=== PATIENT | male | born 1950 | race Caucasian/White ===

== ENCOUNTER 2024-06-05 10:41 | Outpatient (REF) | payer MEDICARE, OTHER, SELFPAY ==
[2024-06-05 12:40] LABS: Alanine Aminotransferase 38 U/L (0-40); Albumin Level 3.1 g/dL (3.5-5.0); Alkaline Phosphatase 188 U/L (39-117); Anion Gap 16 (12-20); Aspartate Amino Transferase 79 U/L (5-37); Blood Urea Nitrogen 10 mg/dL (9-16); Calcium 7.9 mg/dL (8.4-10.2); Carbon Dioxide 24 mmol/L (22-29); Chloride 101 mmol/L (96-108); Estimated Glomerular Filt Rate > 60; Glucose Random 114 mg/dL (60-115); Potassium 3.2 mmol/L (3.3-5.1); Sodium 138 mmol/L (135-145); Total Protein 7.3 g/dL (6.5-8.0)
[2024-06-05 12:45] LABS: HBsAGNum1 0.26 S/CO (0.00-0.99); Hepatitis B Surface Antigen Negative (Negative); ~HepC Num1 0.11 S/CO (0.00-0.79); ~Hepatitis B Surface Antibody NONREACTIVE (Nonreactive); ~Hepatitis C Antibody Nonreactive (Nonreactive)
[2024-06-05 12:47] LABS: Hepatitis A Antibody IgG REACTIVE (Nonreactive); ~Hepatitis A Antibody IgG 10.39 S/CO (0.00-0.99)
[2024-06-05 12:50] LABS: Bilirubin Total 2.2 mg/dL (0.0-1.0)
== END 2024-06-05 10:42 | disposition home or self-care (01) ==
LOC: HO.HHCL 10:41
PROVIDERS: Visit Provider Internal Medicine Geriatric Medicine
DX: K80.50 Calculus of bile duct without cholangitis or cholecystitis without obstruction (principal); K70.30 Alcoholic cirrhosis of liver without ascites; Z72.89 Other problems related to lifestyle
CPT/HCPCS: 36415; 80053; 86706; 86708; 86803; 87340

== ENCOUNTER 2024-09-15 13:56 | Outpatient (REF) | payer MEDICARE, SELFPAY ==
--- OUTSIDE RECORDS SUMMARY | 2024-09-15 16:03 | XMS_ITS | Encounter Summary ---
Author Organization [employer] Address [address] [facility] [address] [place] [address] Care Team Providers Care Hadoop Administrator Name Role Phone Name, Kaz RODRIGUEZ Primary Care Provider [phone] Encounter Details Date Type Department Care Team (Latest Contact Info) Description 09/15/2024 Travel Social History Tobacco Use Types Packs/Day Years Used Date Smoking Tobacco: Never Smokeless Tobacco: Never Depression Answer Date Recorded Patient Health Questionnaire-9 Score 15 2024 Patient Health Questionnaire-9 Score 15 2024 Last PHQ-9: Questionnaire Data Not on file 0 2024 Housing Stability Answer Date Recorded What is your housing situation today? I have isaías martínez [address] you li ve. Do you have problems with any of the following? None of the above 2024 Food Insecurity Answer Date Recorded Within the past 12 months, y ou worried that your food would run out before you got money to buy more: Never True 2024 Within the past 12 months,th e food you bought just didn't last and you didn't have enough money to get more: Never True 09/2024 Transportation Answer Date Recorded In the past 12 months, has l ack of transportation kept you from medical appts, meetings, work or from getting things needed for daily living? No 2024 Utilities Answer Date Recorded In the past 12 months, has t he electric, gas, oil or water company threatened to shut off services in your home? No 2024 Depression Answer Date Recorded Patient Health Questionnaire-2 Score 6 2024 Internet Access Answer Date Recorded Internet Access Q1 Yes 2024 Internet Access Q2 Not on file 2024 Sex and Gender Information Value Date Recorded Sex Assigned at Male 05/26/2024 10:08 AM EST Legal Sex Male 10:06 AM EST Gender Identity Male 06/04/2024 8:40 AM EST Sexual Orientation Straight 06/04/2024 8: 40 AM EST documented as of this encounter Plan of Treatment Upcoming Encounters Date Type Department Care Team (Late st Contact Info) Description 11/24/2024 10:45 AM EDT Office Visit [facility] [address] [place] [phone] Name, MD Kaz [address] [place] [address] 12/11/2024 1:00 PM EDT Immunization [facility] [address] [place] [address] documented as of this encounter Visit Diagnoses Not on filedocumented in this encounter Additional Health Concerns Assessment Noted Time PHQ-9 Depression Total Score: 15 025 9:36 AM EST documented as of this encounter Care Teams Hadoop Administrator Relationship Specialty Start Date End Date Name, MD Kaz [address] [place] [phone] PCP - General Internal Medicine 06/05/24 documented as of this encounter
[2024-09-15 16:12] LABS: MANUAL DIFF FLAG NO
[2024-09-15 16:26] LABS: Basophils Percent Auto 0.5 % (0-2); Eosinophils Absolute Auto 0.1 X10*3/uL (0.0-0.4); Eosinophils Percent Auto 2.3 % (0-4); Hematocrit 25.1 % (42.0-52.0); Hemoglobin 8.1 g/dl (14.0-18.0); Imm Gran Abs Auto 0.01 X10*3/uL (0.00-0.03); Imm Gran Pct Auto 0.2 % (0.0-0.4); Lymphocytes Absolute Auto 1.5 X10*3/uL (1.2-4.9); Lymphocytes Percent Auto 24.1 % (20-40); Mean Corpuscular HGB Conc 32.3 g/dl (31.0-36.0); Mean Corpuscular Hemoglobin 32.5 pg (27.0-33.0); Mean Corpuscular Volume 100.8 fL (80.0-98.0); Mean Platelet Volume 10.6 fL (9.4-12.4); Monocytes Absolute Auto 0.5 X10*3/uL (0.1-1.2); Monocytes Percent Auto 8.8 % (2-11); Neutrophils Absolute Auto 3.9 x10*3/uL (2.0-8.3); Neutrophils Percent Auto 64.1 % (45-73); Platelet Count 228 X10*3/uL (160-400); Red Blood Count 2.49 X10*6/uL (4.60-5.80); Red Cell Distribution Width 15.2 % (11.0-16.0)
[2024-09-15 17:10] LABS: Ferritin 293 ng/mL (20-250)
[2024-09-15 17:34] LABS: Alanine Aminotransferase 34 U/L (0-40); Albumin Level 3.4 g/dL (3.5-5.0); Alkaline Phosphatase 125 U/L (39-117); Anion Gap 12 (12-20); Aspartate Amino Transferase 48 U/L (5-37); Bilirubin Total 0.6 mg/dL (0.0-1.0); Blood Urea Nitrogen 11 mg/dL (9-16); Calcium 8.6 mg/dL (8.4-10.2); Carbon Dioxide 33 mmol/L (22-29); Chloride 103 mmol/L (96-108); Estimated Glomerular Filt Rate > 60; Glucose Random 106 mg/dL (60-115); Iron 54 mcg/dL (45-160); Percent Iron Saturation 22 % (15-50); Potassium 3.9 mmol/L (3.3-5.1); Sodium 144 mmol/L (135-145); Total Iron Binding Capacity 241 mcg/dL (228-428); Total Protein 6.6 g/dL (6.5-8.0); Unsaturated Iron Binding 187 ug/dL
[2024-09-15 18:17] LABS: Folate > 20.0 ng/mL (> or = 4.0); Vitamin B12 468 pg/mL (200-900)
== END 2024-09-15 13:57 | disposition home or self-care (01) ==
LOC: HO.HHCL 13:56
PROVIDERS: Family Medicine; PCP Internal Medicine Geriatric Medicine; Visit Provider Internal Medicine Geriatric Medicine
DX: D53.9 Nutritional anemia, unspecified (principal); J44.9 Chronic obstructive pulmonary disease, unspecified; I50.22 Chronic systolic (congestive) heart failure; D69.6 Thrombocytopenia, unspecified; F10.90 Alcohol use, unspecified, uncomplicated
CPT/HCPCS: 36415; 80053; 82607; 82728; 82746; 83540; 85025

== ENCOUNTER 2024-11-24 11:32 | Outpatient (REF) | payer MEDICARE, MEDICAID, SELFPAY ==
--- NOTE | ~2024-11-24 | XR_ITS ---
EXAMINATION: XR FOOT, RIGHT CLINICAL INFORMATION: Right foot great toe pain for the past 2 weeks, no history of trauma COMPARISON: None available. TECHNIQUE: AP, lateral, and oblique views of the right foot. FINDINGS: There is minimal narrowing of the first metatarsophalangeal joint. Joint spaces are preserved otherwise. On the oblique view, there is nonspecific focal osteopenia involving the medial first metatarsal head. There is no joint diastases or malalignment. There are small marginal osteophytes involving the dorsal midfoot. Globular calcific density is seen in the soft tissues dorsal to the talar neck. There is streaky ossification of the distal Achilles tendon. There is moderate atherosclerotic calcification posterior to the ankle joint. XR/XR foot RT min 3V IMPRESSION: Mild first MTP joint space narrowing. 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 Probable remote avulsion fracture involving dorsal talar neck. Electronically signed by: Connor Womack MD 11/24/2024 12:22 PM EDT
--- OUTSIDE RECORDS SUMMARY | 2024-11-24 10:45 | XMS_ITS | Encounter Summary ---
Author Organization [employer] Address [address] [facility] 7t [place] [address] Care Team Providers Care Special Procedures Technologist Name Role Phone Name, Kaz RODRIGUEZ Primary Care Provider [phone] Encounter Details Date Type Department Care Team ([facility] st Contact Info) Description 11/24/2024 10:45 AM EDT Office Visit [facility] [address] [place], [place] [phone] Name, MD Kaz [address] [place] [address] Heart failure with mildly reduced ejection fraction (CMS/HCC) (Primary Dx); Atrial fibrillation, unspecified type (CMS/HCC); Great toe pain, right; Macrocytic anemia; Gait difficulty Social History Tobacco Use Types Packs/Day Years Used Date Smoking Tobacco: Never Smokeless Tobacco: Never Tobacco Cessation:Counseling Given: Not Answered Depression Answer Date Recorded Patient Health Questionnaire-9 [...] AM EST documented as of this encounter Last Filed Vital Signs Vital Sign Reading Time Taken Comments Blood Pressure 112/62 11/24/2024 10:51 AM EDT Pulse 71 11/24/2024 10:51 AM EDT Temperature 36.7 C (98 F) 11/24/2024 10:51 AM EDT Respiratory Rate 18 11/24/2024 10:5 1 AM EDT Oxygen Saturation 99% 11/24/2024 10: 51 AM EDT Inhaled Oxygen Concentration - - Weight 73.4 kg (161 lb 12.8 oz) 025 10:51 AM EDT Height 165.1 cm (5' 5 ) 11/24/2024 10:5 1 AM EDT Body Mass Index 26.92 11/24/2024 10:51 AM EDT documented in this encounter Plan of Treatment Upcoming Encounters Date Type Department Care Team (Late st Contact Info) Description 12/11/2024 1:00 PM EDT Immunization [facility] [address] [place] [address] 02/17/2025 2:30 PM EST Office Visit [facility] [address] [place] [phone] Name, [place] [address] documented as of this encounter Procedures Procedure Name Priority Date/Time Associated Diagnosis Comments XR FOOT 3+ VIEWS RIGHT Routine 11/24/2024 11:21 AM EDT Great toe pain, right POCT HEMOGLOBIN Routine 11/24/2024 11:21 AM EDT Macrocytic anemia documented in this encounter Results * POCT Hemoglobin (11/24/2024 11:21 AM EDT) Hemoglobin 13.3 13.0 - 17.0 QC Media Lot # [id number] Lot# Expiration Date Blood 11/24/2024 11:2 1 AM EDT Kaz Manning MD POINT OF CARE TEST ENTER/EDIT OR DERABLES Final Result * XR Foot 3+ Views Right (11/24/2024 11:21 AM EDT) Anatomical Region Laterality Modality Lower Extremities, Foot Right Radiogra phic Imaging 11/24/2024 11:2 1 AM EDT Narrative 11/24/2024 12:25 [place] [address] XRay Report Signed Patient: Adolph Wisdom MR#: [id number] : 1950 Acct:[id number] Age/Sex: 74 / M ADM Date: 11/24/24 Loc: .HHCX Attending Dr: Kaz Manning MD Ordering Physician: Kaz Manning MD Date of Service: 11/24/24 Procedure(s): XR foot RT min 3V Accession Number(s): [id number] cc: Kaz Manning MD EXAMINATION: XR FOOT, RIGHT CLINICAL INFORMATION: Right foot great toe pain for the past 2 weeks, no history of trauma COMPARISON: None available. TECHNIQUE: AP, lateral, and oblique views of the right foot. FINDINGS: There is minimal narrowing of the first metatarsophalangeal joint. Joint spaces are preserved otherwise. On the oblique view, there is nonspecific focal osteopenia involving the medial first metatarsal head. There is no joint diastases or malalignment. There are small marginal osteophytes involving the dorsal midfoot. Globular calcific density is seen in the soft tissues dorsal to the talar neck. There is streaky ossification of the distal Achilles tendon. There is moderate atherosclerotic calcification posterior to the ankle joint. XR/XR foot RT min 3V IMPRESSION: Mild first MTP joint space narrowing. 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 Probable remote avulsion fracture involving dorsal talar neck. Electronically signed by: Connor Womack MD 11/24/2024 12:22 PM EDT RP Dictated By: Connor Womack MD Signed By: <Electronically signed by Connor Womack MD in OV> 11/24/24 1222 DD/ 1121 TD/TT: 11/24/24 1200 Hopper Feeder: Procedure Note Donotuseinterpreter, Image - 11/24/[address] [address] XRay Report Signed Patient: Adolph Wisdom LMR#: [id number] : 9Acct:[id number] Age/Sex: 74 / MADM Date: 11/24/24 Loc: HO.HHCX Attending Dr: Kaz Manning MD Ordering Physician: Kaz Manning MD Date of Service: 11/24/24 Procedure(s): XR foot RT min 3V Accession Number(s): [id number] cc: Kaz Manning MD EXAMINATION: XR FOOT, RIGHT CLINICAL INFORMATION: Right foot great toe pain for the past 2 weeks, no history of trauma COMPARISON: None available. TECHNIQUE: AP, lateral, and oblique views of the right foot. FINDINGS: There is minimal narrowing of the first metatarsophalangeal joint. Joint spaces are preserved otherwise. On the oblique view, there is nonspecific focal osteopenia involving the medial first metatarsal head. There is no joint diastases or malalignment. There are small marginal osteophytes involving the dorsal midfoot. Globular calcific density is seen in the soft tissues dorsal to the talar neck. There is streaky ossification of the distal Achilles tendon. There is moderate atherosclerotic calcification posterior to the ankle joint. XR/XR foot RT min 3V IMPRESSION: Mild first MTP joint space narrowing. 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 Probable remote avulsion fracture involving dorsal talar neck. Electronically signed by: Connor Womack MD 11/24/2024 12:22 PM EDT RP Dictated By: Connor Womack MD Signed By: <Electronically signed by Connor Womack MD in OV> 11/24/24 1222 DD/ 1121 TD/TT: 11/24/24 1200 Hopper Feeder: Kaz Manning MD IMG XR PROCEDURES Final Result documented in this encounter Visit Diagnoses Diagnosis Heart failure with mildly reduced ejection fraction (CMS/HCC)- Primary Atrial fibrillation, unspecified type (CMS/HCC) Great toe pain, right Macrocytic anemia Gait difficulty Abnormality of gait documented in this encounter Additional Health Concerns Assessment Noted Time PHQ-9 Depression Total Score: 15 06/05/ 025 9:36 AM EST documented as of this encounter Care Teams Special Procedures Technologist Relationship Specialty Start Date End Date Name, MD Kaz [address] [place] [address] PCP - General Internal Medicine 06/05/24 [facility] 09/07/24 documented as of this encounter
--- OUTSIDE RECORDS SUMMARY | 2024-11-24 12:31 | XMS_ITS | Encounter Summary ---
Author Organization [employer] Address [address] [facility] [address] [place] [address] Care Team Providers Care Converting Supervisor Name Role Phone Name, Kaz RODRIGUEZ Primary Care Provider [phone] Encounter Details Date Type Department Care Team (Latest Contact Info) Description 11/24/2024 Travel Social History Tobacco Use Types Packs/Day [...] Info) Description 12/11/2024 1:[address] [facility] [address] [place] [phone] 02/17/2025 2:30 PM EST Office Visit [facility] [address] [place] [address] NameKaz MD [address] [place] [address] documented as of this encounter Visit Diagnoses Not on filedocumented in this encounter Additional Health Concerns Assessment Noted Time PHQ-9 Depression Total Score: 15 025 9:36 AM EST documented as of this encounter Care Teams Converting Supervisor Relationship Specialty Start Date End Date NameKaz MD [address] [place] [phone] PCP - General Internal Medicine 06/05/24 [facility] 09/07/24 documented as of this encounter
--- OUTSIDE RECORDS SUMMARY | 2024-11-24 12:31 | XMS_ITS | Encounter Summary ---
Author Organization [employer] Address [address] [facility] 7t [place] [address] Care Team Providers Care Graphic Designer Name Role Phone Name, Kaz RODRIGUEZ Primary Care Provider [phone] Encounter Details Date Type Department Care Team (Late st Contact Info) Description 09/18/2024 Orders Only [facility] [address] [place] [address] Provider, MD Clemencia Social History Tobacco Use Types Packs/Day Years Used Date Smoking Tobacco: Never Smokeless Tobacco: Never Depression Answer Date Recorded Patient Health Questionnaire-9 Score 15 2024 Patient Health Questionnaire-9 Score 15 2024 Last PHQ-9: Questionnaire Data Not on file 0 2024 Housing Stability Answer Date Recorded What is your housing situation today? I have isaíastodd martínez [address] you [...] Info) Description 12/11/2024 1:00 PM EDT Immunization [facility] [address] [place] [phone] 02/17/2025 2:30 PM EST Office Visit [facility] [address] [place] [phone] Name, MD Kaz [address] [place] [phone] documented as of this encounter Procedures Procedure Name Priority Date/Time Associated Diagnosis Comments EGD Routine 09/18/2024 3:54 PM EDT documented in this encounter Results * EGD (09/18/2024 3:54 PM EDT) Anatomical Region Laterality Modality Endoscopy Historical Provider ENDOSCOPY PROCEDURE ORDER PARUL Final Result documented in this encounter Visit Diagnoses Not on filedocumented in this encounter Additional Health Concerns Assessment Noted Time PHQ-9 Depression Total Score: 15 025 9:36 AM EST documented as of this encounter Care Teams Graphic Designer Relationship Specialty Start Date End Date Name, MD Kaz [address] [place] [address] PCP - General Internal Medicine 06/05/24 [facility] 09/07/24 documented as of this encounter
--- OUTSIDE RECORDS SUMMARY | 2024-11-24 12:31 | XMS_ITS | Encounter Summary ---
Author Organization [employer] Address [address] [facility] 7t [place] [address] Care Team Providers Care Motor Equipment Sergeant Name Role Phone Name, Kaz RODRIGUEZ Primary Care Provider Reason for Visit * Reason Comments Med Refill Encounter Details Date Type Department Care Team ([facility] st Contact Info) Description 11/20/2024 Refill [facility] [address] [place], [place] [phone] Name, MD Kaz [address] [place], [place] [phone] Social History Tobacco Use Types Packs/Day Years [...] Info) Description 12/11/2024 1:00 PM EDT Immunization [address] [address] 02/17/2025 2:30 PM EST Office Visit [address] [address] Name, MD Kaz [address] [place] [address] documented as of this encounter Visit Diagnoses Not on filedocumented in this encounter Additional Health Concerns Assessment Noted Time PHQ-9 Depression Total Score: 15 025 9:36 AM EST documented as of this encounter Care Teams Motor Equipment Sergeant Relationship Specialty Start Date End Date NameKaz MD [address] [place] [phone] PCP - General Internal Medicine 06/05/24 [facility] 09/07/24 documented as of this encounter
--- OUTSIDE RECORDS SUMMARY | 2024-11-24 12:31 | XMS_ITS | Encounter Summary ---
Author Organization [employer] Address [address] [facility] 7t [place] [address] Care Team Providers Care Pest Controller Assistant Name Role Phone Name, Kaz RODRIGUEZ Primary Care Provider [phone] Reason for Visit * Reason Onset Date Comments chart prep 11/23/2024 Encounter Details Date Type Department Care Team ([facility] st Contact Info) Description 11/23/2024 Telephone [facility] [address] [place], [place] [phone] Dorothy Forbes MA chart prep Social History Tobacco Use Types Packs/Day Years [...] AM EST documented as of this encounter Miscellaneous Notes * Telephone Encounter - Dorothy Forbes MA - 11/23/2024 9:39 AM EDT Chart Prep Labs: done Images: not applicable Referrals: appointment pending Vaccines due: Covid, Flu, Hep B, Hep A, and Zoster Screenings: not applicable Overdue care gaps: Not applicable documented in this encounter Plan of Treatment Upcoming Encounters Date Type Department Care Team (Late st Contact Info) Description 12/11/2024 1:00 PM EDT Immunization [facility] [address] [place] [phone] 02/17/2025 2:30 PM EST Office Visit [facility] [address] [place] [phone] NameKaz MD [address] [place] [phone] documented as of this encounter Visit Diagnoses Not on filedocumented in this encounter Additional Health Concerns Assessment Noted Time PHQ-9 Depression Total Score: 15 025 9:36 AM EST documented as of this encounter Care Teams Pest Controller Assistant Relationship Specialty Start Date End Date Kaz Manning MD [address] [place] [address] PCP - General Internal Medicine 06/05/24 [facility] 09/07/24 documented as of this encounter
--- OUTSIDE RECORDS SUMMARY | 2024-11-24 12:31 | XMS_ITS | Clinical Summary ---
Author Organization [employer] Address [address] [facility] [address] [place] [address] Care Team Providers Care Human Resources Assistant Name Role Phone Name, Kaz RODRIGUEZ Primary Care Provider [phone] Allergies No known active allergies Medications Ventolin HFA 108 (90 Base) MCG/ACT inhaler 05/25/19 25 Active lidocaine (Xylocaine) 5 % ointment Apply topically if needed for moderate pain. 50 g 11 06/06/19 25 2025 Active atorvastatin (Lipitor) 80 MG tablet Take 80 mg by mouth Once per day. 06/19/19 25 2025 Active lisinopril 10 MG tablet Take 1 tablet by mouth Once per day. 06/19/19 25 Active Multiple Vitamin (One-Daily Multi-Vitamin) tablet Take 1 tablet by mouth Once per day. 30 tablet 11 09/16/19 25 Active folic acid (Folvite) 1 MG tablet Take 1 tablet (1 mg) by mouth Once per day. 30 tablet 3 09/16/19 25 2024 Active pyridoxine (B-6) 50 MG tablet Take 1 tablet (50 mg) by mouth Once per day. 30 tablet 3 09/16/19 25 2024 Active FT Nicotine 21 MG/24HR patch APPLY 1 PATCH TOPICALLY TO THE SKIN IN THE MORNING *DO NOT SMOKE WHILE USING PATCH* 30 patch 2 11/21/19 25 Active Farxiga 10 MG Take 10 mg by mouth. 09/25/19 25 2025 Active Entresto 97-103 MG tablet See Instructions , 1 tablet By Mouth 2 times a day, # 60 tablet, 5 Refills, Maintenance, 11/03/24 4:05:00 PM EDT, Tablet, [facility], dose increase, 1 tablet By Mouth 2 times a day, 165, cm, 11/03/24 15:53:00 EDT, Height, 66.5, kg, 09/18/24 5:36:00 EDT, Dry Weight 11/04/19 Active spironolactone (Aldactone) 25 MG tablet Take 25 mg by mouth Once per day. Active Lasix 20 MG tablet Take 1 tablet (20 mg) by mouth Once per day. 11/25/192025 Active metoprolol succinate XL (Toprol XL) 100 MG 24 hr tablet Take 1.5 tablets (150 mg) by mouth Once per day. Do not crush or chew. 11/25/19 25 2025 Active colchicine 0.6 MG tablet Take 0.5 tablets (0.3 mg) by mouth Once per day. 5 tablet 11/25/192025 Active metoprolol succinate XL (Toprol-XL) 25 MG 24 hr tablet Take 3 tablets by mouth Once per day. 05/25/19 25 2024 Discontinued(T herapy completed) ondansetron ODT (Zofran-ODT) 4 MG disintegrating tablet 05/25/19 25 2024 Discontinued(T herapy completed) Eliquis 5 MG tablet Take 5 mg by mouth 2 times daily. 06/19/19 25 2024 Discontinued(T herapy completed) nicotine (Nicoderm, Step 1) 21 MG/24HR patch Place 1 patch on the skin 1 (one) time each day at the same time. 30 patch 2 08/08/19 25 2024 Discontinued Lasix 20 MG tablet Take 20 mg by mouth Once per day. 09/02/192024 Discontinued(T herapy completed) Active Problems Problem Noted Date Diagnosed Date Alcoholism 2024 Tobacco use disorder 2024 Alcoholic cirrhosis of liver without ascites 09/2024 Overview (2024): Results - Exam Date Time Procedure Performing Provider Status 05/21/24 8:[address] Angio Abdomen and Pelvis Colon , Alejandra; Modified Notes: (CT Angio Abdomen and Pelvis) Reason For Exam: AAA, surveillance;Other: RESULT: CT Angio Abdomen and Pelvis EXAMINATION: CT Angio Chest, CT Angio Abdomen and Pelvis INDICATION: Hx of Present Illness: c o RUQ pain that is intermitant. denies difficulty with urination. denies CP or pressure. c o increased SOB. not O2 dependent at home, placed on oxygen with EMS.; Reason: Other:; Aortic disease, nontraumatic; Clinical Question(s): Other:; AAA TECHNIQUE: Spiral CTA of the chest was performed after rapid IV contrast administration without cardiac gating triggered by an LUIS A on the aorta. Images are formatted in multiple planes using 2-D multiplanar and 3-D maximum intensity projection. 100 cc of Isovue 300 was administered intravenously. Weight-based protocol using automatic tube modulation was used to optimize exposure parameters. CTDIvol Body: 9.77 mGy, DLP Body: 939 mGy*cm. COMPARISONS: None. ANGIOGRAPHIC FINDINGS: 5.5 cm maximal diameter ascending aortic aneurysm. I do not see findings of acute rupture. There is some motion artifact likely related to pulsation. No findings to indicate acute process. Normal three vessel arch without branch vessel stenosis. Pulmonary arteries are normal in caliber. No evidence of central pulmonary embolism on this study performed without dedicated technique. Vascular structures appear otherwise unremarkable. NON-ANGIOGRAPHIC FINDINGS: Shaft Repairer View Findings, Lines and Tubes: None. Trachea and Airways: Patent without evidence of tracheal or endobronchial lesion. Lungs and Pleura: Clear lungs. No effusion or pneumothorax. Mediastinum and jaret: No mass or hematoma. No mediastinal or hilar lymphadenopathy. No esophageal abnormality. Heart: Heart is normal in size. No pericardial effusion. Chest Wall Soft Tissues: Normal. Diaphragm : No significant abnormality. Liver: Probable enlargement of the caudate lobe of the liver. Findings suggestive of cirrhosis. No definite mass appreciated. Gallbladder: Cholelithiasis. No evidence of inflammation. Bile ducts: No biliary ductal dilation. Spleen: Normal. Pancreas: Normal. Adrenal glands: Normal. Kidneys and ureters: No hydronephrosis, stones, or suspicious masses. Bladder: Normal. Reproductive organs: Unremarkable. Stomach, small bowel, and large bowel: Normal. Appendix: Normal. Peritoneum and retroperitoneum: No ascites or pneumoperitoneum. No omental or mesenteric lesions. Lymph nodes: No enlarged lymph nodes. Abdominal and pelvic wall: Unremarkable. Bones: Chronic appearing L2 vertebral compression fracture. IMPRESSION: 5.5 cm asymmetry aortic aneurysm. No evidence of dissection or acute rupture. No acute abnormality within the chest abdomen or pelvis. Probable enlargement of the caudate lobe of the liver. However, hepatic mass is not entirely excluded and MRI follow-up is recommended. Findings suggestive of cirrhosis. WSN: [id number] Ordering Physician: Momo Dominique Dictated By: Harry Davila MD Dictated Date/Time: 05/21/24 8:41 pm Reviewed By: Harry Davila MD Signed By: Harry Davila MD Signed Date/Time: 05/21/24 8:41 pm Transcribed By: KEYANNA Transcribed Date/Time: 05/21/24 8:33 pm ADDENDUM: CT Angio Abdomen and Pelvis 5 mm calcification seen in the distal common bile duct. Common bile duct does appear prominent. The findings likely represent obstructing stone. Choledocholithiasis 2024 Overview (2024): 05/21/24 11:11 PM US Abdomen Ltd Tawanna Jane; Auth (Verified) Notes: (US Abdomen Ltd) Reason For Exam: Abdominal Pain;Other: RESULT: US Abdomen Ltd US Abdomen Ltd Reason: Other:; Abdominal Pain; Clinical Question(s): Choledocholithiasis COMPARISON: CT angiogram abdomen and pelvis 05/21/2024 FINDINGS: Gallbladder: Multiple gallstones. Normal wall thickness. No pericholecystic fluid. Negative Guzman sign. Biliary Tree: No intrahepatic bile duct dilation is identified. Common duct: 1.3 cm. Limited visualization of the distal common bile duct due to bowel gas. Suspect possible distal obstructing lesion/stone on recent CT. IMPRESSION: Dilated common bile duct measuring 1.[address] performed the same day demonstrates distal common duct stone. Further evaluation with ERCP can be considered. Cholelithiasis without evidence of cholecystitis. The patient did not have ERCP inpatient due to his multiple medical problems. He is due to follow up with GI at outpatient at [facility] Ischemic cardiomyopathy 2024 Overview (2024): Event Display: ECG 12-Lead Authored Date: [id number] Ventricular Rate: 99 BPM Atrial Rate: 99 BPM P-R Interval: 158 ms QRS Duration: 98 ms Q-T Interval: 358 ms QTC Calculation(Bazett): 459 ms P [place]: 28 degrees R [place]: 62 degrees T [place]: 30 degrees Normal sinus rhythm Inferior infarct (cited on or before 17-Feb-2016) Abnormal ECG When compared with ECG of 13-Nov-2019 02:14, QRS axis Shifted right Inverted T waves have replaced nonspecific T wave abnormality in Inferior leads Confirmed by SHINE MITCHELL MD ([id number]) on 05/22/2024 8:40:35 AM Echocardiogram - Complete 10:15:43 Summary 1) The left ventricular size is dilated The left ventricular wall thickness is mildly increased. The LV systolic function is moderately reduced. The left ventricular ejection fraction is 30-35% by visual assessment. There is global hypokinesis with regional variation. There is akinesis of the basal to mid inferior and inferolateral, as well as basal inferoseptal gibbons. 2) Grade II, moderate diastolic dysfunction with pseudonormal LV filling pattern and increased LA pressure. 3) The right ventricle is normal in size. Right ventricular systolic function is mildly reduced. 4) There is severe aneurysmal dilatation of the ascending aorta (5.3 cm). 5) The left atrium is moderately dilated. 6) The aortic valve is possibly bicuspid. The aortic valve appears moderately calcified with reduced excursion. There is moderate aortic stenosis. The aortic valve area is 1.15 cm2 by continuity equation. The mean gradient is 28 mmHg. There is mild to moderate aortic regurgitation. 7) The mitral valve appears mildly thickened. There is probably moderate mitral regurgitation with an eccentric jet. Comparison Comparison is made to the study of February 19, 2016. There has been progression of aortic stenosis, worsening of mitral regurgitation, and progressive dilation of ascending aorta Signature Signed By: Shine Mitchell MD Heart failure with mildly reduced ejection fract ion 2024 Overview (2024): Echocardiogram - Complete 10:15:43 Summary 1) The left ventricular size is dilated The left ventricular wall thickness is mildly increased. The LV systolic function is moderately reduced. The left ventricular ejection fraction is 30-35% by visual assessment. There is global hypokinesis with regional variation. There is akinesis of the basal to mid inferior and inferolateral, as well as basal inferoseptal gibbons. 2) Grade II, moderate diastolic dysfunction with pseudonormal LV filling pattern and increased LA pressure. 3) The right ventricle is normal in size. Right ventricular systolic function is mildly reduced. 4) There is severe aneurysmal dilatation of the ascending aorta (5.3 cm). 5) The left atrium is moderately dilated. 6) The aortic valve is possibly bicuspid. The aortic valve appears moderately calcified with reduced excursion. There is moderate aortic stenosis. The aortic valve area is 1.15 cm2 by continuity equation. The mean gradient is 28 mmHg. There is mild to moderate aortic regurgitation. 7) The mitral valve appears mildly thickened. There is probably moderate mitral regurgitation with an eccentric jet. Comparison Comparison is made to the study of February 19, 2016. There has been progression of aortic stenosis, worsening of mitral regurgitation, and progressive dilation of ascending aorta Signature Signed By: Shine Mitchell MD Aortic valve stenosis 2024 Overview (2024): Echocardiogram - Complete 10:15:43 Summary 1) The left ventricular size is dilated The left ventricular wall thickness is mildly increased. The LV systolic function is moderately reduced. The left ventricular ejection fraction is 30-35% by visual assessment. There is global hypokinesis with regional variation. There is akinesis of the basal to mid inferior and inferolateral, as well as basal inferoseptal gibbons. 2) Grade II, moderate diastolic dysfunction with pseudonormal LV filling pattern and increased LA pressure. 3) The right ventricle is normal in size. Right ventricular systolic function is mildly reduced. 4) There is severe aneurysmal dilatation of the ascending aorta (5.3 cm). 5) The left atrium is moderately dilated. 6) The aortic valve is possibly bicuspid. The aortic valve appears moderately calcified with reduced excursion. There is moderate aortic stenosis. The aortic valve area is 1.15 cm2 by continuity equation. The mean gradient is 28 mmHg. There is mild to moderate aortic regurgitation. 7) The mitral valve appears mildly thickened. There is probably moderate mitral regurgitation with an eccentric jet. Comparison Comparison is made to the study of February 19, 2016. There has been progression of aortic stenosis, worsening of mitral regurgitation, and progressive dilation of ascending aorta Signature Signed By: Santino RODRIGUEZ, Shine Greco Thoracic aortic aneurysm without rupture 025 Atrial fibrillation 2024 Resolved Problems Problem Noted Date Diagnosed Date Resolved Date Back pain 2024 2024 Encounter for screening colonoscopy 2024 2024 Anemia 2024 2024 Encounters Date Type Department Care Team Description 11/24/2024 10:45 AM EDT Office Visit [address] [place] [address] Kaz Manning MD Heart failure with mildly reduced ejection fraction (CMS/HCC) (Primary Dx); Atrial fibrillation, unspecified type (CMS/HCC); Great toe pain, right; Macrocytic anemia; Gait difficulty 11/24/2024 Travel 11/23/[address] [address] Dorothy Forbes MA chart prep 11/20/[address] [address] Kaz Manning MD 11/17/2024 Travel 10/30/[address] [address] Kaz Manning MD 10/01/[address] [address] Kaz Manning MD Durable Medical Equipment 09/21/[address] [address] Kaz Manning MD 09/18/2024 Orders Only [place] [facility] [place] [address] ProviderClemencia MD 09/16/2024 Results Follow-Up [address] [place] [address] Kaz Manning MD Comprehensive Metabolic Panel, CBC auto differential 09/15/2024 1:15 PM EDT Office Visit [address] [address] Kaz Manning MD Heart failure with mildly reduced ejection fraction (CMS/HCC) (Primary Dx); Oxygen dependent; Suspected chronic obstructive pulmonary disease based on initial evaluation (CMS/HCC); Macrocytic anemia 09/15/2024 Travel 09/14/2024 Telephone [facility] [address] [place] [address] Kaz Manning MD Chart Prep 09/08/2024 Travel 09/03/2024 Travel 09/02/2024 Telephone [facility] [address] [place] [address] Caroline Ellington, PATRICK 08/27/2024 Travel from Last 3 Months Immunizations Immunization Administration Dates Next Due Hep B, adult 07/10/2024,06/12/2024 Influenza, High Dose Seasonal, Preservative Free 12/10/2019 Influenza, seasonal, injectable, preservative fr ee 2024 Pneumococcal Conjugate PCV 20 2024 Tdap 2024 Social History Tobacco Use Types Packs/Day Years [...] Orientation Straight 06/04/2024 8: 40 AM EST Last Filed Vital Signs Vital Sign Reading [...] Mass Index 26.92 11/24/2024 10:51 AM EDT Plan of Treatment Upcoming Encounters Date Type Department Care Team (Late st Contact Info) Description 12/11/2024 1:00 PM EDT Immunization [facility] [address] [place] [phone] 02/17/2025 2:30 PM EST Office Visit [address] [address] Name, MD Kaz [address] [place] [phone] Health Maintenance Due Date Last Done Comments Dental Oral Exam 1950 Dental Prophylaxis 1950 Dental X-Ray: Bitewings 1950 Dental X-Ray: Full Mouth 1950 Lipid Panel 1950 Hepatitis A Vaccines (1 of 2 - Risk 2-dose series) 06/06/1967 Zoster Vaccines (1 of 2) 1998 RSV Patients and Patients Aged 60 years or older (1 - 1-dose 75+ series) 06/06/2023 COVID-19 Vaccine (1 - 2023-2 5 season) 2023 Influenza Vaccine (#1) 2024 , 12/10/2019 Depression Monitoring 12/06/2024 2024 , 2024 Hepatitis B Vaccines (3 of 3 - Risk 3-dose series) 12/13/2024 07/10/2024, 06/12/2024 SDOH Screening 2025 2024 Alcohol/Substance Use Screening 08/07/2025 08/07/2024 Tobacco Screening 11/24/2025 11/24/2024 DTaP/Tdap/Td Vaccines (2 - T d or Tdap) 2034 2024 Hepatitis C Screening Completed 2024 Pneumococcal Vaccine: 50+ Years Completed 2024 HIB Vaccines Aged Out No longer eligi ble based on patient's age to complete this topic HPV Vaccines Aged Out No longer eligi ble based on patient's age to complete this topic IPV Vaccines Aged Out No longer eligi ble based on patient's age to complete this topic Meningococcal B Vaccine Aged Out No l onger eligible based on patient's age to complete this topic Meningococcal Vaccine Aged Out No kourtney prieto eligible based on patient's age to complete this topic RSV under 20 months Aged Out No longe r eligible based on patient's age to complete this topic Rotavirus Vaccines Aged Out No longer eligible based on patient's age to complete this topic Procedures Procedure Name Priority Date/Time Associated Diagnosis Comments POCT HEMOGLOBIN Routine 11/24/2024 11:21 AM EDT Macrocytic anemia XR FOOT 3+ VIEWS RIGHT Routine 11:21 AM EDT Great toe pain, right EGD Routine 09/18/2024 3:54 PM EDT IRON AND TOTAL IRON BINDING CAPACITY Routine 09/15/2024 2:09 PM EDT Heart failure with mildly reduced ejection fraction (CMS/HCC) Suspected chronic obstructive pulmonary disease based on initial evaluation (CMS/HCC) Macrocytic anemia FERRITIN Routine 09/15/2024 2:09 PM EDT Heart failure with mildly reduced ejection fraction (CMS/HCC) Suspected chronic obstructive pulmonary disease based on initial evaluation (CMS/HCC) Macrocytic anemia VITAMIN B12/FOLATE, SERUM PANEL Routine 09/15/2024 2:09 PM EDT Macrocytic anemia CBC WITH AUTO DIFFERENTIAL Routine 09/15/2024 2:09 PM EDT Thrombocytopenia (CMS/HCC) COMPREHENSIVE METABOLIC PANEL Routine 09/15/2024 2:09 PM EDT Alcohol use disorder HEPATITIS C AB W/REFL TO HCV RNA, QN, PCR Routine 2024 10:45 AM EST Alcoholic cirrhosis of liver without ascites (CMS/HCC) from Last 3 Months or Most Recently Relevant to Health Maintenance Results * XR Foot 3+ Views Right (11/24/2024 11:21 AM EDT) Anatomical Region Laterality Modality Lower Extremities, Foot Right [facility] 11/24/2024 11:2 1 AM EDT Narrative 11/24/2024 12:25 [place] [address] XRay Report Signed Patient: Adolph Wisdom MR#: [id number] : 1950 Acct:[id number] Age/Sex: 74 / M ADM Date: 11/24/24 Loc: .HHCX Attending Dr: Kaz Manning MD Ordering Physician: Kaz Manning MD Date of Service: 11/24/24 Procedure(s): XR foot RT min 3V Accession Number(s): [id number] cc: Kaz Manning MD EXAMINATION: XR FOOT, [...] 11/24/24 1222 DD/ 1121 TD/TT: 11/24/24 1200 It Compliance Analyst: Procedure Note Donotuseinterpreter, Image - 11/24/[address] [address] XRay Report Signed Patient: Adolph Wisdom LMR#: [id number] : 9Acct:[id number] Age/Sex: 74 / MADM Date: 11/24/24 Loc: HO.HHCX Attending Dr: Kaz Manning MD Ordering Physician: Kaz Manning MD Date of Service: 11/24/24 Procedure(s): XR foot RT min 3V Accession Number(s): [id number] cc: Kaz Manning MD EXAMINATION: XR FOOT, [...] 11/24/24 1222 DD/ 1121 TD/TT: 11/24/24 1200 It Compliance Analyst: us Kaz Name IMG XR PROCEDURES Final Result * POCT Hemoglobin (11/24/2024 11:21 AM EDT) Pathologist [facility] Hemoglobin 13.3 13.0 - 17.0 QC Media Lot # [id number] Lot# Expiration Date Blood 11/24/2024 11:2 1 AM EDT Kaz Name POINT OF CARE TEST ENTER/EDIT OR DERABLES Final Result * EGD (09/18/2024 3:54 PM EDT) Anatomical Region Laterality Modality Endoscopy [facility] Provider ENDOSCOPY PROCEDURE ORDER PARUL Final Result * Vitamin B12 (Cobalamin) and Folate Panel, Serum (09/15/2024 2:09 PM EDT) Vitamin B12 468 200 - 900 pg/mL [facility] Comment:NORMAL 200-900 PG/ML INDETERMINATE 160-199 PG/ML DEFICIENT < 160 PG/ML Folate >20.0 > or = 4.0 ng/mL [facility] Comment:Reference Values:> o r = 4.0 ng/mL< 4.0 ng/mL suggests folate deficiency Methotrexate, aminopterin and folinic acid(leucovorin) are chemotherapeutic agents whose molecularstructures are similar to folate; therefore, the Architectfolate assay cannot be used for patients using these drugs. Blood Venous blood specimen / Unknown 09/15/2024 2:09 PM EDT 09/15/2024 4:08 PM EDT us Kaz Manning MD LAB BLOOD ORDERABLES Final Resul t [facility] [address] [place], [place] [phone] * (ABNORMAL) CBC auto differential (09/15/2024 2:09 PM EDT) White Blood Count 6.0 4.8 - 10.8 X10*3/uL [facility] Red Blood Count 2.49(L) 4.60 - 5.80 X10*6/uL [facility] Hemoglobin 8.1(L) 14.0 - 18.0 g/dl [facility] Hematocrit 25.1(L) 42.0 - 52.0 % [facility] Mean Corpuscular Volume 100.8(H) 80.0 - 98.0 fL [facility] Mean Corpuscular Hemoglobin 32.5 27.0 - 33.0 pg [facility] Mean Corpuscular HGB Conc 32.3 31.0 - 36.0 g/dl [facility] Red Cell Distribution Width 15.2 11.0 - 16.0 % [facility] Platelet Count 228 160 - 400 X10*3/uL [facility] Mean Platelet Volume 10.6 9.4 - 12.4 fL [facility] Neutrophils Percent Auto 64.1 45 - 73 % [facility] Imm Gran Pct Auto 0.2 0.0 - 0.4 % [facility] Lymphocytes Percent Auto 24.1 20 - 40 % [facility] Monocytes Percent Auto 8.8 2 - 11 % [facility] Eosinophils Percent Auto 2.3 0 - 4 % [facility] Basophils Percent Auto 0.5 0 - 2 % [facility] NRBC Pct Auto 0.0 0.0 - 0.2 /100WBC [facility] Neutrophils Absolute Auto 3.9 2.0 - 8.3 x10*3/uL [facility] Imm Gran Abs Auto 0.01 0.00 - 0.03 X10*3/uL [facility] Lymphocytes Absolute Auto 1.5 1.2 - 4.9 X10*3/uL [facility] Monocytes Absolute Auto 0.5 0.1 - 1.2 X10*3/uL [facility] Eosinophils Absolute Auto 0.1 0.0 - 0.4 X10*3/uL [facility] Basophils Absolute Auto 0.0 0.0 - 0.2 X10*3/uL [facility] NRBC Abs Auto 0.000 0.0 - 0.012 X10*3/uL [facility] Blood Venous blood specimen / Unknown 09/15/2024 2:09 PM EDT 09/15/2024 4:08 PM EDT Renard Avalos MD LAB BLOOD ORDERABLES Final Resul t Performing Organization Address City/[facility]/ZIP Co de Phone Number [facility] [address] [place] [phone] * Iron And Total Iron Binding Capacity (09/15/2024 2:09 PM EDT) [facility] Iron 54 45 - 160 mcg/dL [facility] Total Iron Binding Capacity 241 228 - 428 mcg/dL [facility] Percent Iron Saturation 22 15 - 50 % [facility] Unsaturated Iron Binding 187 ug/dL [facility] Blood Venous blood specimen / Unknown 09/15/2024 2:09 PM EDT 09/15/2024 4:08 PM EDT Kaz Manning MD LAB BLOOD ORDERABLES Final Resul t Performing Organization Address City/[facility]/ZIP Co de Phone Number [facility] [address] [place] [phone] * (ABNORMAL) Ferritin (09/15/2024 2:09 PM EDT) Ferritin 293(H) 20 - 250 ng/mL [facility] Blood Venous blood specimen / Unknown 09/15/2024 2:09 PM EDT 09/15/2024 4:08 PM EDT us Kaz Name MD LAB BLOOD ORDERABLES Final Resul t [facility] [address], [place] [phone] * (ABNORMAL) Comprehensive Metabolic Panel (09/15/2024 2:09 PM EDT) Sodium 144 135 - 145 mmol/L [facility] Potassium 3.9 3.3 - 5.1 mmol/L [facility] Chloride 103 96 - 108 mmol/L [facility] Carbon Dioxide 33(H) 22 - 29 mmol/L [facility] Anion Gap 12 12 - 20 [facility] Urea Nitrogen (BUN) 11 9 - 16 mg/dL [facility] Creatinine, Serum 0.68 0.5 - 1.4 mg/dL [facility] Estimated Glomerular Filt Rate >60 [facility] Comment:Chronic Kidney Disea se: Estimated GFR < 60 mL/min/1.20u6Bwewec Kidney Disease: Estimated GFR < 15 mL/min/1.73m2 Glucose 106 60 - 115 mg/dL [facility] Calcium 8.6 8.4 - 10.2 mg/dL [facility] Bilirubin, Total 0.6 0.0 - 1.0 mg/dL [facility] Aspartate Amino Transferase 48(H) 5 - 37 U/L [facility] Alanine Aminotransferase 34 0 - 40 U/L [facility] Total Protein 6.6 6.5 - 8.0 g/dL [facility] [facility] Albumin Level 3.4(L) 3.5 - 5.0 g/dL [facility] Alkaline Phosphatase 125(H) 39 - 117 U/L [facility] Blood Venous blood specimen / Unknown 09/15/2024 2:09 PM EDT 09/15/2024 4:08 PM EDT Renard Avalos MD LAB BLOOD ORDERABLES Final Resul t Performing Organization Address [facility] Co de Phone Number [facility] [address] [place] [phone] * Hepatitis C Antibody with Reflex to HCV, RNA, Quantitative, Real-Time PCR (2024 10:45 AM EST) Hepatitis C Antibody Nonreactive Nonreactive [facility] Comment:Antibodies to HCV no t detected; does not exclude early acuteHCV infection. Blood Venous blood specimen / Unknown 2024 10:45 AM EST 2024 11:35 AM EST Kaz Manning MD LAB BLOOD ORDERABLES Final Resul t Performing Organization Address [facility] Co de Phone Number [facility] [address] [place] [phone] from Last 3 Months or Most Recently Relevant to Health Maintenance Insurance [place] [address] [place] [id number] [facility] - HSN FULL (MEDICAID) Care Teams Human Resources Assistant Relationship Specialty Start Date End Date Name, MD [address] [place] [address] PCP - General Internal Medicine 06/05/24 [facility] 09/07/24
== END 2024-11-24 11:33 | disposition home or self-care (01) ==
LOC: HO.HHCX 11:32
PROVIDERS: PCP Internal Medicine Geriatric Medicine; Visit Provider Internal Medicine Geriatric Medicine
DX: M79.674 Pain in right toe(s) (principal)
CPT/HCPCS: 73630

== ENCOUNTER → 2024-11-24 11:38 | Outpatient (BNV) | payer MEDICARE, MEDICAID, SELFPAY | PROVIDERS: PCP Internal Medicine Geriatric Medicine; Visit Provider Radiology Diagnostic Radiology | DX: M19.071 Primary osteoarthritis, right ankle and foot (principal) | CPT/HCPCS: 73630 ==